=== PATIENT | female | born 1990 | race African-American/Black ===

== ENCOUNTER 2016-07-23 03:09 | Emergency (ER) | payer OTHER ==
[~2016-07-23] VITALS: Ht 167.6 cm; Wt 83.0 kg
--- NOTE | ~2016-07-23 | EKG ---
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
[~2016-07-23 03:09] MED LIST: ACETAMINOPHEN-1 EAC1 PO; AMOXICILLIN 50500 M1 PO; APAP500 PO; CELEXA 10 MG TA10 M1 PO; COLACE 100 MG100 MG PO; DERMOPLAST SPRA56 ML; EXCEDRIN CAPLE1 EACH PO; HYDROCORTISONE30 G9 TOP; IBUPROFEN 800800 M1 PO; IRON325 PO; MACROBID 100 M100 M1 PO; NAPROSYN500 MG PO; NORCO 5-325 TA1 EACH PO; PENICILLIN V P500 MG PO; PENICILLIN VK250 MG PO; PEPCID40 MG PO; PERCOCET 5-3251 EACH PO; PHENTERMINE H37.5 MG PO; PRENATAL; PRILOSEC40 MG PO; PROTONIX40 MG PO; TOBREX5 ML OPHTHALMIC; TUCKS MEDICATE1 EAC1; UNICOMPLEX M TA1 TA1 PO; VENTOLIN17 GM INH; ZOFRAN ODT4 MG PO; ZPAK PO
[2016-07-23 04:12] LABS: CALCIUM 8.8 mg/dL (8.5-10.1); CREATININE 0.7 mg/dL (0.6-1.0); POTASSIUM 3.7 mmol/L (3.5-5.1)
[2016-07-23 04:17] LABS: ALBUMIN 3.5 g/dL (3.4-5.0); TOTAL BILIRUBIN 0.3 mg/dL (<0.1-1.0); TOTAL PROTEIN 7.1 g/dL (6.4-8.2)
[2016-07-23 05:02] LABS: ABSOLUTE NEUTROPHILS 4.9 thou/uL (1.4-8.2); BASOPHILS 0.3 % (0.0-2.0); LYMPHOCYTES 34.1 % (24.0-44.0); MONOCYTES 7.7 % (1.0-8.0); POLYS 54.9 % (36.0-66.0)
[2016-07-23 05:11] VITALS: BP 97/51
[2016-07-23] MEDS ORDERED: PRILOSEC 20 MG20 MG PO (05:11)
[2016-07-23 05:12] LABS: TROPONIN-I < 0.04 ng/mL (<0.04-0.07)
[2016-07-23 05:15] LABS: HEMATOCRIT 38.3 % (37.0-47.0); HEMOGLOBIN 13.3 gm/dL (12.0-15.0); MANUAL DIFF NO; MCV 101.7 fL (80.0-100.0); RBC 3.76 mil/uL (4.20-5.00); WBC 9.1 thou/uL (4.0-11.0)
[2016-07-23 05:16] LABS: MCH 35.3 pg (26.0-34.0); MCHC 34.7 g/dL (28.0-37.0); PLATELET COUNT 202 thou/uL (150-400); RDW 12.8 % (10.5-14.5)
== END 2016-07-23 05:25 | disposition home or self-care (01) ==
LOC: ER 03:09
PROVIDERS: Emergency Medicine
DX: K21.9 Gastro-esophageal reflux disease without esophagitis (principal); J45.909 Unspecified asthma, uncomplicated; F41.9 Anxiety disorder, unspecified; Z97.5 Presence of (intrauterine) contraceptive device; F17.210 Nicotine dependence, cigarettes, uncomplicated

== ENCOUNTER 2016-08-19 08:32 | Emergency (ER) | payer OTHER ==
[~2016-08-19] VITALS: Ht 167.6 cm; Wt 83.9 kg
[~2016-08-19 08:32] MED LIST changes: +PRILOSEC 20 MG20 MG PO
[2016-08-19] MEDS ORDERED: PENICILLIN VK500 M1 PO (09:31)
[2016-08-19] MEDS ORDERED: DICLOFENAC SODI75 MG PO (09:31)
[2016-08-19 09:47] VITALS: BP 123/88
== END 2016-08-19 09:47 | disposition home or self-care (01) ==
LOC: ER 08:32
DX: K04.7 Periapical abscess without sinus (principal); J45.909 Unspecified asthma, uncomplicated; G43.909 Migraine, unspecified, not intractable, without status migrainosus; F41.9 Anxiety disorder, unspecified; F10.99 Alcohol use, unspecified with unspecified alcohol-induced disorder; Z98.890 Other specified postprocedural states; Z87.891 Personal history of nicotine dependence